=== PATIENT | male | born 1995 | race Two or more races ===

== ENCOUNTER 2023-04-03 21:03 | Emergency (ER) | payer OTHER ==
[~2023-04-03] VITALS: Ht 167.6 cm; Wt 52.6 kg
[2023-04-03] MEDS ORDERED: LIDOCAINE 1% INJ 50 ML MDV IJ ONE (21:38)
[2023-04-03] MEDS ORDERED: CEPH500C2 PO (21:53)
[2023-04-04 02:16] VITALS: BP 124/71; TEMP 98.3; O2SAT 97
== END 2023-04-03 23:15 | disposition home or self-care (01) ==
LOC: ER 21:04
DX: S61.213A Laceration without foreign body of left middle finger without damage to nail, initial encounter (principal); W25.XXXA Contact with sharp glass, initial encounter; Y93.89 Activity, other specified; Y92.89 Other specified places as the place of occurrence of the external cause; Y99.0 Civilian activity done for income or pay
CPT/HCPCS: 99283; 12002; J3490

== ENCOUNTER 2023-04-07 13:34 | Emergency (ER) | payer OTHER ==
[~2023-04-07] VITALS: Ht 167.6 cm; Wt 49.9 kg
[~2023-04-07 13:34] MED LIST: CEPH500C2 PO
[2023-04-07 14:00] VITALS: BP 112/70; TEMP 98.1; O2SAT 98
== END 2023-04-07 14:49 | disposition home or self-care (01) ==
LOC: ER 13:45
DX: S61.213D Laceration without foreign body of left middle finger without damage to nail, subsequent encounter (principal); X58.XXXD Exposure to other specified factors, subsequent encounter